=== PATIENT | female | born 1930 | race African-American/Black ===

== ENCOUNTER 2018-03-04 20:17 | Emergency (ER) | payer OTHER ==
--- NOTE | 2018-03-04 22:57 | EDPHYS ---
Physician Documentation [facility] Name: Elle Guy Age: 87 yrs Sex: Female : 1930 Arrival Date: 03/04/2018 Time: 20:20 Bed 18 Private MD: ED Physician Connor Peña HPI: 03/04 21:47 This 87 yrs old Black Female presents to ER via Wheelchair with complaints of Fall snw Injury, Head Injury-Adult. 21:47 Details of fall: The patient fell from an upright position, while standing. Onset: The snw symptoms/episode began/occurred suddenly, yesterday. Associated injuries: The patient sustained injury to the head, felt a little dizzy after fall. Severity of symptoms: At their worst the symptoms were mild. It is unknown whether or not the patient has had similar symptoms in the past. It is unknown whether or not the patient has recently seen a physician. pt states she just lost her balance yesterday. Denies pain. States mild dizziness. Historical: - Allergies: 20:34 NKA; aj - Home Meds: 20:34 amlodipine 10 mg tab 1 tab [Active]; chlorthalidone 25 mg Oral tab 1 tab once daily aj [Active]; glimepiride 2 mg Oral tab 1 tab once daily [Active]; metoprolol tartrate 25 mg Oral tab 1 tab once daily [Active]; Metformin Oral [Active]; Vitamin D Oral [Active]; - PMHx: 20:34 Arthritis; Diabetes - NIDDM; Hypertension; aj - PSHx: 20:34 left hand sx; aj - Immunization history: Last tetanus immunization: unknown. - Social history:: Smoking status: Patient/guardian denies using tobacco. ROS: 21:47 Constitutional: Negative for fever, chills, and weight loss, Eyes: Negative for injury, snw pain, redness, and discharge, ENT: Negative for injury, pain, and discharge, Neck: Negative for injury, pain, and swelling, Cardiovascular: Negative for chest pain, palpitations, and edema, Respiratory: Negative for shortness of breath, cough, wheezing, and pleuritic chest pain, Abdomen/GI: Negative for abdominal pain, nausea, vomiting, diarrhea, and constipation, Back: Negative for injury and pain, : Negative for injury, bleeding, discharge, and swelling, MS/Extremity: Negative for injury and deformity, Skin: Negative for injury, rash, and discoloration. 21:47 Neuro: Positive for dizziness. Exam: 21:47 Constitutional: This is a well developed, well nourished patient who is awake, alert, snw and in no acute distress. Head/Face: Normocephalic, atraumatic. ENT: Nares patent. No nasal discharge, no septal abnormalities noted. Tympanic membranes are normal and external auditory canals are clear. Oropharynx with no redness, swelling, or masses, exudates, or evidence of obstruction, uvula midline. Mucous membranes moist. Neck: Trachea midline, no thyromegaly or masses palpated, and no cervical lymphadenopathy. Supple, full range of motion without nuchal rigidity, or vertebral point tenderness. No Meningismus. Chest/axilla: Normal chest wall appearance and motion. Nontender with no deformity. No lesions are appreciated. Cardiovascular: Regular rate and rhythm with a normal S1 and S2. No gallops, murmurs, or rubs. Normal PMI, no JVD. No pulse deficits. Respiratory: Lungs have equal breath sounds bilaterally, clear to auscultation and percussion. No rales, rhonchi or wheezes noted. No increased work of breathing, no retractions or nasal flaring. Abdomen/GI: Soft, non-tender, with normal bowel sounds. No distension or tympany. No guarding or rebound. No evidence of tenderness throughout. Back: No spinal tenderness. No costovertebral tenderness. Full range of motion. Skin: Warm, dry with normal turgor. Normal color with no rashes, no lesions, and no evidence of cellulitis. MS/ Extremity: Pulses equal, no cyanosis. Neurovascular intact. Full, normal range of motion. Neuro: Awake and alert, GCS 15, oriented to person, place, time, and situation. Cranial nerves II-XII grossly intact. Motor strength 5/5 in all extremities. Sensory grossly intact. Cerebellar exam normal. Normal gait. 21:47 Eyes: Periorbital structures: appear normal, Pupils: no acute changes, Conjunctiva: no acute changes, hx of glaucoma. Vital Signs: 20:30 BP 136 / 64; Pulse 72; Resp 18; Temp 97.6; Pulse Ox 96% on R/A; Weight 67.13 kg; Height aj 4 ft. 11 in. (149.86 cm); Pain 0/10; 21:48 BP 128 / 68; Pulse 67; Resp 17 S; Pulse Ox 98% on R/A; jd3 23:30 BP 150 / 83; Pulse 64; Resp 18 S; Pulse Ox 98% on R/A; Pain 0/10; jd3 20:30 Body Mass Index 29.89 (67.13 kg, 149.86 cm) aj Marianne Coma Score: 20:30 Eye Response: spontaneous(4). Verbal Response: oriented(5). Motor Response: obeys aj commands(6). Total: 15. Trauma Score (Adult): 20:30 Eye Response: spontaneous(1); Verbal Response: oriented(1); Motor Response: obeys aj commands(2); Systolic BP: > 89 mm Hg(4); Respiratory Rate: 10 to 29 per min(4); Marianne Score: 15; Trauma Score: 12 MDM: 21:38 Patient medically screened. snw 22:58 Data reviewed: vital signs, nurses notes. Data interpreted: Pulse oximetry: on room air snw is 98 %. Interpretation: normal. Counseling: I had a detailed discussion with the patient and/or guardian regarding: the historical points, exam findings, and any diagnostic results supporting the discharge/admit diagnosis, radiology results, to return to the emergency department if symptoms worsen or persist or if there are any questions or concerns that arise at home. Special discussion: Based on the patient's history, exam and DX evaluation, there is no indication for emergent intervention or inpatient TX. It is understood by the patient/guardian that if the SXs persist or worsen they need to return immediately for re-evaluation. Based on the history and exam findings, there is no indication for further emergent testing or inpatient evaluation. I discussed with the patient/guardian the need to see the primary care provider for further evaluation of the symptoms. 03/04 21:38 Order name: CT Head C Spine snw Administered Medications: No medications were administered Disposition: 03/05 08:19 Co-signature as Attending Physician, Connor Peña MD I agree with the assessment and rehan plan of care. Disposition: 03/04/18 22:57 Discharged to Home. Impression: Fall on same level, unspecified, Superficial injury of head. - Condition is Stable. - Discharge Instructions: Glaucoma, Head Injury, Adult. - Medication Reconciliation Form, Thank You Letter, Antibiotic Education, Prescription Opioid Use form. - Follow up: Private Physician; When: 1 - 2 days; Reason: Recheck today's complaints, Continuance of care, Re-evaluation by your physician. Follow up: Emergency Department; When: As needed; Reason: Worsening of condition. Signatures: Dispatcher [employer] EDMaria M Tesfaye, RN RN Connor Hilario MD MD cha Therrien, Shelly, MANUFACTURING ENGINEERING DIRECTOR-C MANUFACTURING ENGINEERING DIRECTOR-Csnw Wai Durand, RN RN jd3 Corrections: (The following items were deleted from the chart) 03/04 23:35 22:57 03/04/2018 22:57 Discharged to Home. Impression: Fall on same level, unspecified; jd3 Superficial injury of head. Condition is Stable. Forms are Medication Reconciliation Form, Thank You Letter, Antibiotic Education, Prescription Opioid Use. Follow up: Private Physician; When: 1 - 2 days; Reason: Recheck today's complaints, Continuance of care, Re-evaluation by your physician. Follow up: Emergency Department; When: As needed; Reason: Worsening of condition. snw
--- NOTE | 2018-03-04 22:57 | ER ---
Nurse's Notes [facility] Name: Elle Guy Age: 87 yrs Sex: Female : 1930 Arrival Date: 03/04/2018 Time: 20:20 Bed 18 Private MD: Diagnosis: Fall on same level, unspecified;Superficial injury of head Presentation: 03/04 20:30 Presenting complaint: Patient states: Reports falling yesterday and hitting back of head. Reports having tingling sensation in one leg before falling. Reports tingling has subsided. Reports feeling dizzy today. Care prior to arrival: None. Mechanism of Injury: Fall from standing position. Trauma event details: Injury occurred in the [place], Injury occurred: at home. Injury occurred: March 03, 2018. 20:30 Method Of Arrival: Wheelchair 20:30 Acuity: DAVID 3 20:33 Transition of care: patient was not received from another setting of care. Onset of symptoms was March 04, 2018. Initial Sepsis Screen: Does the patient meet any 2 criteria? No. Patient's initial sepsis screen is negative. Does the patient have a suspected source of infection? No. Patient's initial sepsis screen is negative. Trauma Activation: Not Applicable Physician: ED Physician; Name: ; Notified At: ; Arrived At: Physician: General Surgeon; Name: ; Notified At: ; Arrived At: Physician: Radiology; Name: ; Notified At: ; Arrived At: Physician: Respiratory; Name: ; Notified At: ; Arrived At: Physician: Lab; Name: ; Notified At: ; Arrived At: Historical: - Allergies: 20:34 NKA; aj - Home Meds: 20:34 amlodipine 10 mg tab 1 tab [Active]; chlorthalidone 25 mg Oral tab 1 tab once daily aj [Active]; glimepiride 2 mg Oral tab 1 tab once daily [Active]; metoprolol tartrate 25 mg Oral tab 1 tab once daily [Active]; Metformin Oral [Active]; Vitamin D Oral [Active]; - PMHx: 20:34 Arthritis; Diabetes - NIDDM; Hypertension; aj - PSHx: 20:34 left hand sx; aj - Immunization history: Last tetanus immunization: unknown. - Social history:: Smoking status: Patient/guardian denies using tobacco. Screenin:32 Abuse screen: Denies threats or abuse. Nutritional screening: No deficits noted. jd3 Tuberculosis screening: No symptoms or risk factors identified. Fall Risk Fall in past 12 months (25 points). Ambulatory Aid- Crutches/Cane/Walker (15 pts). Gait- Weak (10 pts.). Total Tucker Fall Scale indicates High Risk Score (45 or more points). Fall prevention measures have been instituted. Side Rails Up X 2 Placed Close to Nursing Station Frequent Obs/Assessments Occuring Family Present and informed to notify staff if the need to leave the bedside. Primary Survey: 20:30 A: Airway: patent. Breathing/Chest: Respiratory pattern: regular, Respiratory effort: aj spontaneous, unlabored. Circulation: Skin color:. Disability Alert. 23:32 Reassessment Breathing/Chest Respiratory pattern Regular Respiratory effort Spontaneous jd3 Breath sounds Clear Chest inspection Symmetrical. Assessment: 20:30 General: Appears in no apparent distress. comfortable, Behavior is calm, cooperative, aj appropriate for age. Pain: Denies pain. Neuro: Level of Consciousness is awake, alert, obeys commands, Oriented to person, place, time, situation, Appropriate for age Reports dizziness. Respiratory: Airway is patent Respiratory effort is even, unlabored, Respiratory pattern is regular, symmetrical. Derm: Skin is intact, is healthy with good turgor, Skin is pink, warm \T\ dry. normal. 21:41 Reassessment: Patient appears in no apparent distress at this time. No changes from jd3 previously documented assessment. Patient and/or family updated on plan of care and expected duration. Pain level reassessed. Patient is alert, oriented x 3, equal unlabored respirations, skin warm/dry/pink. pt resting with eyes closed, even and unlabored respirations, call hernadez in reach, no distress noted at this time. 23:30 Reassessment: Patient appears in no apparent distress at this time. Patient and/or d3 family updated on plan of care and expected duration. Pain level reassessed. Patient is alert, oriented x 3, equal unlabored respirations, skin warm/dry/pink. pt reported understanding of discharge instructions, pt assisted to front of ER with wheelchair. Vital Signs: 20:30 BP 136 / 64; Pulse 72; Resp 18; Temp 97.6; Pulse Ox 96% on R/A; Weight 67.13 kg; Height aj 4 ft. 11 in. (149.86 cm); Pain 0/10; 21:48 BP 128 / 68; Pulse 67; Resp 17 S; Pulse Ox 98% on R/A; jd3 23:30 BP 150 / 83; Pulse 64; Resp 18 S; Pulse Ox 98% on R/A; Pain 0/10; jd3 20:30 Body Mass Index 29.89 (67.13 kg, 149.86 cm) aj Marianne Coma Score: 20:30 Eye Response: spontaneous(4). Verbal Response: oriented(5). Motor Response: obeys aj commands(6). Total: 15. Trauma Score (Adult): 20:30 Eye Response: spontaneous(1); Verbal Response: oriented(1); Motor Response: obeys aj commands(2); Systolic BP: > 89 mm Hg(4); Respiratory Rate: 10 to 29 per min(4); Marianne Score: 15; Trauma Score: 12 ED Course: 20:20 Patient arrived in ED. am2 20:31 Triage completed. aj 20:34 Arm band placed on right wrist. Patient placed in an exam room. aj 21:38 Sybil Frye FNP-C is PHCP. snw 21:38 Connor Peña MD is Attending Physician. snw 21:40 Wai Durand, DEANNE is Primary Nurse. jd3 21:[address] via stretcher. em2 22:06 CT completed. Patient tolerated procedure well. Patient moved back from CT. em2 22:08 CT Head C Spine In Process Unspecified. EDMS 23:31 Patient has correct armband on for positive identification. Bed in low position. Call jd3 light in reach. Side rails up X2. Adult w/ patient. 23:32 Patient maintains SpO2 saturation greater than 95% on room air. jd3 23:34 No provider procedures requiring assistance completed. Patient did not have IV access jd3 during this emergency room visit. 23:34 Thermoregulation: warm blanket given to patient. jd3 Administered Medications: No medications were administered Intake: 23:34 PO: 0ml; Total: 0ml. jd3 Output: 23:34 Urine: 0ml; Total: 0ml. jd3 Outcome: 22:57 Discharge ordered by . snw 23:33 Discharged to home via wheelchair, with family. jd3 23:33 Condition: stable 23:33 Discharge instructions given to patient, family, Instructed on discharge instructions, follow up and referral plans. Demonstrated understanding of instructions, follow-up care. 23:33 Patient's length of stay in the Emergency Department was greater than 2 hours. waiting for diagnostic test resultsPatient's length of stay extended due to 23:35 Patient left the ED. jd3 Signatures: Dispatcher [employer] Maria M Treadwell, RN RN Sybil Kulkarni, SENIOR MATERIALS ANALYST-C SENIOR MATERIALS ANALYST-Merlinew Chadwick Harmon 2 Maria M Epstein am2 Wai Durand RN RN jd3
[2018-03-04 23:46] VITALS: TEMP 97.6
[2018-03-04 23:47] VITALS: O2SAT 98
[2018-03-04 23:48] VITALS: BP 150/83
--- NOTE | 2018-03-05 08:30 | RAD REPORT ---
EXAM DESCRIPTION: CT - [id number] - 03/05/2018 7:26 am CLINICAL HISTORY: Trauma, head and neck injury. COMPARISON: 05/28/2017 TECHNIQUE: Axial 5 mm thick images of the head were obtained. Axial 2 mm thick images of the cervical spine were obtained with sagittal and coronal reconstruction images generated and reviewed. All CT scans are performed using dose optimization technique as appropriate and may include automated exposure control or mA/KV adjustment according to patient size. FINDINGS: CT HEAD WITHOUT CONTRAST: No acute hemorrhage, hydrocephalus or extra-axial collection is identified.Mild generalized brain atr ophy is present with mild periventricular and deep white matter chronic microvascular ischemic change s.No areas of brain edema or midline shift. The paranasal sinuses and mastoids are clear.The calvarium is intact. CT CERVICAL SPINE WITHOUT CONTRAST: No fracture or subluxation.Large posterior spurs are present that C4-5 resulting canal narrowing appe arNo prevertebral soft tissues swelling is identified. Calcified right thyroid lobe nodule seen. IMPRESSION: No acute intracranial or cervical spine findings. Spinal canal stenosis at C4-5 suspected due to large posterior osteophytes.
--- NOTE | 2018-03-05 10:04 | EKG ---
Test Date: 2018-03-04 Test Time: 20:46:05 Academic Affairs Manager: LEO MEASUREMENT RESULTS: Intervals: Rate: 68 [place]: 252 QRSD: 146 QT: 444 QTc: 472 [place]: P: 26 [place]: 252 QRS: -2 T: 226 INTERPRETIVE STATEMENTS: Sinus rhythm with 1st degree AV block Left bundle branch block Abnormal ECG Compared to ECG 05/27/2017 23:15:30 No significant changes Electronically Signed On 03-05-18 10:02:58 CDT by Néstor Harmon
== END 2018-03-04 23:35 | disposition home or self-care (01) ==
LOC: ER 20:17
DX: S00.90XA Unspecified superficial injury of unspecified part of head, initial encounter (principal); W18.30XA Fall on same level, unspecified, initial encounter; Y93.89 Activity, other specified; Y92.9 Unspecified place or not applicable; I10 Essential (primary) hypertension; E11.9 Type 2 diabetes mellitus without complications
CPT/HCPCS: 70450; 72125; 93005; 99284

== ENCOUNTER 2018-04-10 10:10 | Observation (INO) | payer OTHER ==
[2018-04-10 11:15] LABS: Protime INR 1.08
[2018-04-10 11:16] LABS: Absolute Lymphocytes (CBC) 1.7 K/uL (0.7-4.9); Absolute Monocytes 0.4 K/uL (0.1-1.3); Absolute Neutrophil 4.2 K/uL (1.8-8.0); Basophils % 0.7 % (0-1.3); Eosinophils % 4.6 % (0-4.4); Hematocrit 35.5 % (36.0-45.0); Lymphocytes % 25.5 % (15.3-44.8); MCH 28.6 pg (27.0-35.0); MCV 91.4 fL (80-100); MPV 8.7 fL (7.6-11.3); Monocytes % 5.8 % (3.3-12.3); RBC Red Blood Cell Count 3.89 M/uL (3.86-4.86)
--- NOTE | 2018-04-10 11:40 | RAD REPORT ---
EXAM DESCRIPTION: RAD - Chest Single View - 04/10/2018 11:15 am CLINICAL HISTORY: Chest pain. COMPARISON: 05/27/2017 FINDINGS: Portable technique limits examination quality. The lungs are grossly clear. The heart is normal in size. No displaced fractures.Dual lead pacer mariana ce is present. IMPRESSION: No acute intrathoracic process suspected.
[2018-04-10 11:44] LABS: Potassium 4.3 mEq/L (3.6-5.0)
[2018-04-10 11:50] LABS: Albumin 3.8 g/dL (3.2-5.5); Bilirubin Direct 0.1 mg/dL (0-0.2); Bilirubin Total 0.4 mg/dL (0.3-1.2); Magnesium 1.9 mg/dL (1.8-2.5); Protein, Total 7.1 g/dL (6.0-8.3)
[2018-04-10 12:14] LABS: Urine Blood 2+ (NEG); Urine Glucose NEGATIVE (NEG); Urine Protein 1+ (NEG); Urine Specific Gravity 1.015 (1.005-1.030); Urine pH 5.5 (5.0-7.0)
--- NOTE | 2018-04-10 12:35 | RAD REPORT ---
EXAM DESCRIPTION: CT - Head Brain Wo Cont - 04/10/2018 12:25 pm CLINICAL HISTORY: Fall, head injury. COMPARISON: 03/04/2018, 05/28/2017 TECHNIQUE: All CT scans are performed using dose optimization technique as appropriate and may inclu de automated exposure control or mA/KV adjustment according to patient size. FINDINGS: No intracranial hemorrhage, hydrocephalus or extra-axial fluid collection.Advance generali zed brain atrophy is present with advanced periventricular and deep white matter chronic microvascula r ischemic changes.No areas of brain edema or evidence of midline shift. The paranasal sinuses and mastoids are clear. The calvarium is intact. Left posterior scalp hematoma. IMPRESSION: No acute intracranial abnormality.
--- NOTE | 2018-04-10 13:36 | ER ---
Nurse's Notes [facility] Name: Elle Guy Age: 87 yrs Sex: Female : 1930 Arrival Date: 04/10/2018 Time: 10:14 Bed 14 Private MD: Yosvany Preciado K Diagnosis: Abnormal electrocardiogram [ECG] [EKG];Dizziness and giddiness;Near Syncope Presentation: 04/10 10:21 Presenting complaint: Patient states: " I got dizzy and fell about an hour ago." Denies ph LOC, reports pain in back of head and L ear. Transition of care: patient was not received from another setting of care. Onset of symptoms was April 10, 2018. Risk Assessment: Do you want to hurt yourself or someone else? Patient reports no desire to harm self or others. Initial Sepsis Screen: Does the patient meet any 2 criteria? No. Patient's initial sepsis screen is negative. Does the patient have a suspected source of infection? No. Patient's initial sepsis screen is negative. Care prior to arrival: None. 10:21 Method Of Arrival: Wheelchair ph 10:21 Acuity: DAVID 3 ph Historical: - Allergies: 10:23 NKA; ph - Home Meds: 10:23 amlodipine 10 mg tab 1 tab [Active]; chlorthalidone 25 mg Oral tab 1 tab once daily ph [Active]; glimepiride 2 mg Oral tab 1 tab once daily [Active]; Metformin Oral [Active]; metoprolol tartrate 25 mg Oral tab 1 tab once daily [Active]; Vitamin D Oral [Active]; - PMHx: 10:23 Arthritis; Diabetes - NIDDM; Hypertension; ph - PSHx: 10:23 left hand sx; ph - Immunization history:: Adult Immunizations unknown. - Social history:: Smoking status: Patient/guardian denies using tobacco. - Ebola Screening: : No symptoms or risks identified at this time. Screenin:26 Abuse screen: Denies threats or abuse. Denies injuries from another. Nutritional aj screening: No deficits noted. Tuberculosis screening: No symptoms or risk factors identified. Fall Risk None identified. Primary Survey: 10:27 Breathing/Chest: Respiratory pattern: regular, Respiratory effort: spontaneous, aj unlabored. Circulation: Skin color: pink. Disability Alert. Assessment: 10:26 General: Appears in no apparent distress. comfortable, Behavior is calm, cooperative, aj appropriate for age. Pain: Complains of pain in scalp. Neuro: Level of Consciousness is awake, alert, obeys commands, Oriented to person, place, time, situation, Appropriate for age. Neuro: Reports dizziness. Respiratory: Airway is patent Respiratory effort is even, unlabored, Respiratory pattern is regular, symmetrical. Derm: Skin is intact, is healthy with good turgor, Skin is pink, warm \\T\\ dry. normal. Vital Signs: 10:24 BP 198 / 79; Pulse 73; Resp 16; Temp 98.5; Pulse Ox 97% on R/A; Weight 68.04 kg; ph 11:17 BP 170 / 70; Pulse 59; Resp 16; Pulse Ox 96% on R/A; aj 11:45 BP 182 / 72; Pulse 60; Resp 16; Pulse Ox 98% on R/A; dh3 12:45 BP 161 / 73; Pulse 60; Resp 19; Pulse Ox 97% on R/A; dh3 13:30 BP 180 / 79; Pulse 60; Resp 16; Pulse Ox 97% on R/A; dh3 16:04 BP 165 / 72; Pulse 62; Resp 16; Temp 98.5; Pulse Ox 97% on R/A; aj [place] Coma Score: 10:27 Eye Response: spontaneous(4). Verbal Response: oriented(5). Motor Response: obeys aj commands(6). Total: 15. Trauma Score (Adult): 10:27 Eye Response: spontaneous(1); Verbal Response: oriented(1); Motor Response: obeys aj commands(2); Systolic BP: > 89 mm Hg(4); Respiratory Rate: 10 to 29 per min(4); Marianne Score: 15; Trauma Score: 12 ED Course: 10:14 Patient arrived in ED. ph 10:14 Maria M Pal, DEANNE is Primary Nurse. aj 10:15 Yosvany Preciado MD is Private Physician. mr 10:16 Beto Cesar PA is PHCP. jr8 10:16 Darryn Wen MD is Attending Physician. jr8 10:23 Triage completed. ph 10:24 Arm band placed on. ph 10:26 Patient has correct armband on for positive identification. aj 11:12 X-ray completed. Portable x-ray completed in exam room. jr1 11:15 XRAY Chest (1 view) In Process Unspecified. EDMS 11:45 Urine collected: hat, clear. dh3 12:00 Inserted saline lock: 20 gauge in right antecubital area, using aseptic technique. aj 12:[address] aj 12:24 CT completed. Patient tolerated procedure well. Patient moved to CT via stretcher. mw3 Patient moved back from CT. 12:25 CT Head Brain wo Cont In Process Unspecified. EDMS 13:35 Giancarlo Elias MD is Hospitalizing Provider. jr8 16:04 No provider procedures requiring assistance completed. aj Administered Medications: No medications were administered Point of Care Testing: Blood Glucose: 10:23 Blood Glucose: 121 mg/dL; aj Ranges: Outcome: 13:36 Decision to Hospitalize by Provider. jr8 16:20 Patient left the ED. aj Signatures: Dispatcher [employer] EDMS Maria M Pal, DEANNE RN Sindy Jimenez mr [place] jr1 Beto Cesar PA PA jr8 Kaykay Noonan, RN RN Chantelle Bright 3 Ava Ga 3 Corrections: (The following items were deleted from the chart) 14:16 14:15 BP 180 / 79; Pulse 60bpm; Resp 16bpm; Pulse Ox 97% RA; 3 3
--- NOTE | 2018-04-10 13:37 | EDPHYS ---
Physician Documentation [facility] Name: Elle Guy Age: 87 yrs Sex: Female : 1930 Arrival Date: 04/10/2018 Time: 10:14 Bed 14 Private MD: Yosvany Preciado K ED Physician Darryn Wen HPI: 04/10 11:17 This 87 yrs old Black Female presents to ER via Wheelchair with complaints of Fall jr8 Injury. 11:17 Details of fall: The patient fell from an upright position, while standing. Onset: The jr8 symptoms/episode began/occurred acutely, today. Associated injuries: The patient sustained injury to the head. Severity of symptoms: At their worst the symptoms were moderate, in the emergency department the symptoms are unchanged. The patient has experienced a previous episode. The patient has not recently seen a physician. Patient stated that she started to feel dizzy and lightheaded. Fell backwards hitting head. Denies LOC. Currently at baseline and feels better. Historical: - Allergies: 10:23 NKA; ph - Home Meds: 10:23 amlodipine 10 mg tab 1 tab [Active]; chlorthalidone 25 mg Oral tab 1 tab once daily ph [Active]; glimepiride 2 mg Oral tab 1 tab once daily [Active]; Metformin Oral [Active]; metoprolol tartrate 25 mg Oral tab 1 tab once daily [Active]; Vitamin D Oral [Active]; - PMHx: 10:23 Arthritis; Diabetes - NIDDM; Hypertension; ph - PSHx: 10:23 left hand sx; ph - Immunization history:: Adult Immunizations unknown. - Social history:: Smoking status: Patient/guardian denies using tobacco. - Ebola Screening: : No symptoms or risks identified at this time. ROS: 11:17 Eyes: Negative for injury, pain, redness, and discharge, ENT: Negative for injury, jr8 pain, and discharge, Neck: Negative for injury, pain, and swelling, Cardiovascular: Negative for chest pain, palpitations, and edema, Respiratory: Negative for shortness of breath, cough, wheezing, and pleuritic chest pain, Abdomen/GI: Negative for abdominal pain, nausea, vomiting, diarrhea, and constipation, Back: Negative for injury and pain, MS/Extremity: Negative for injury and deformity, Skin: Negative for injury, rash, and discoloration. 11:17 Neuro: Positive for dizziness, near syncope, Negative for altered mental status, loss of consciousness, numbness, seizure activity, speech changes, tingling, tremor, visual changes, weakness. Exam: 11:17 Eyes: Pupils equal round and reactive to light, extra-ocular motions intact. Lids and jr8 lashes normal. Conjunctiva and sclera are non-icteric and not injected. Cornea within normal limits. Periorbital areas with no swelling, redness, or edema. ENT: Nares patent. No nasal discharge, no septal abnormalities noted. Tympanic membranes are normal and external auditory canals are clear. Oropharynx with no redness, swelling, or masses, exudates, or evidence of obstruction, uvula midline. Mucous membranes moist. Neck: Trachea midline, no thyromegaly or masses palpated, and no cervical lymphadenopathy. Supple, full range of motion without nuchal rigidity, or vertebral point tenderness. No Meningismus. Cardiovascular: Regular rate and rhythm with a normal S1 and S2. No gallops, murmurs, or rubs. Normal PMI, no JVD. No pulse deficits. Respiratory: Lungs have equal breath sounds bilaterally, clear to auscultation and percussion. No rales, rhonchi or wheezes noted. No increased work of breathing, no retractions or nasal flaring. Abdomen/GI: Soft, non-tender, with normal bowel sounds. No distension or tympany. No guarding or rebound. No evidence of tenderness throughout. Back: No spinal tenderness. No costovertebral tenderness. Full range of motion. Skin: Warm, dry with normal turgor. Normal color with no rashes, no lesions, and no evidence of cellulitis. MS/ Extremity: Pulses equal, no cyanosis. Neurovascular intact. Full, normal range of motion. Neuro: Awake and alert, GCS 15, oriented to person, place, time, and situation. Cranial nerves II-XII grossly intact. Motor strength 5/5 in all extremities. Sensory grossly intact. Cerebellar exam normal. Normal gait. 11:17 Head/face: Noted is hematoma, that is mild, of the left occipital area. Vital Signs: 10:24 BP 198 / 79; Pulse 73; Resp 16; Temp 98.5; Pulse Ox 97% on R/A; Weight 68.04 kg; ph 11:17 BP 170 / 70; Pulse 59; Resp 16; Pulse Ox 96% on R/A; aj 11:45 BP 182 / 72; Pulse 60; Resp 16; Pulse Ox 98% on R/A; dh3 12:45 BP 161 / 73; Pulse 60; Resp 19; Pulse Ox 97% on R/A; dh3 13:30 BP 180 / 79; Pulse 60; Resp 16; Pulse Ox 97% on R/A; dh3 16:04 BP 165 / 72; Pulse 62; Resp 16; Temp 98.5; Pulse Ox 97% on R/A; aj Marianne Coma Score: 10:27 Eye Response: spontaneous(4). Verbal Response: oriented(5). Motor Response: obeys aj commands(6). Total: 15. Trauma Score (Adult): 10:27 Eye Response: spontaneous(1); Verbal Response: oriented(1); Motor Response: obeys aj commands(2); Systolic BP: > 89 mm Hg(4); Respiratory Rate: 10 to 29 per min(4); Marianne Score: 15; Trauma Score: 12 MDM: 10:16 Patient medically screened. [facility] 13:34 Data reviewed: vital signs, nurses notes, lab test result(s), EKG, radiologic studies, [facility] CT scan, plain films, and as a result, I will discharge patient. Data interpreted: Pulse oximetry: on room air is 97 %. Interpretation: normal. Counseling: I had a detailed discussion with the patient and/or guardian regarding: the historical points, exam findings, and any diagnostic results supporting the discharge/admit diagnosis, lab results, radiology results, the need for further work-up and treatment in the hospital. Physician consultation: Giancarlo Elias MD was called at 13:34, was contacted at 13:34, regarding admission, to the telemetry unit. patient's condition, and will see patient. ED course: Discussed with Dr. Elias. Patient still feeling dizzy. Had near syncopal episode earlier today. EKG changes present. Agrees observation needed . 04/10 10:46 Order name: Basic Metabolic Panel; Complete Time: 12:23 [facility] 04/10 10:46 Order name: BNP; Complete Time: 12:23 [facility] 04/10 10:46 Order name: CBC with Diff; Complete Time: 11:21 04/10 10:46 Order name: LFT's; Complete Time: 12:23 04/10 10:46 Order name: Magnesium; Complete Time: 12:23 04/10 10:46 Order name: PT-INR; Complete Time: 11:21 04/10 10:46 Order name: Troponin (emerg Dept Use Only); Complete Time: 12:23 04/10 10:46 Order name: XRAY Chest (1 view); Complete Time: 12:23 04/10 10:46 Order name: EKG; Complete Time: 10:46 04/10 10:46 Order name: Cardiac monitoring; Complete Time: 11:16 04/10 10:46 Order name: EKG - Nurse/Tech; Complete Time: 11:04/10 11:42 Order name: Urine Dipstick--Ancillary (enter results); Complete Time: 12:23 04/10 12:06 Order name: CT Head Brain wo Cont; Complete Time: 12:41 04/10 13:55 Order name: Diet Regular; Complete Time: 13:55 04/10 10:46 Order name: IV Saline Lock; Complete Time: 11:04/10 10:46 Order name: Labs collected and sent; Complete Time: :04/10 10:46 Order name: O2 Per Protocol; Complete Time: :04/10 10:46 Order name: O2 Sat Monitoring; Complete Time: 11:04/10 10:46 Order name: Urine Dipstick-Ancillary (obtain specimen); Complete Time: 11:46 Administered Medications: No medications were administered Point of Care Testing: Blood Glucose: 10:23 Blood Glucose: 121 mg/dL; Ranges: Critical Glucose Levels:Adult <50 mg/dl or >400 mg/dl <40 mg/dl or >180 mg/dl Disposition: 18:44 Co-signature as Attending Physician, Darryn Wen MD I agree with the assessment and kdr plan of care. Disposition: 04/10/18 13:36 Hospitalization ordered by Giancarlo Elias for Observation. Preliminary diagnosis are Abnormal electrocardiogram [ECG] [EKG], Dizziness and giddiness, Near Syncope. - Bed requested for Telemetry/MedSurg (observation). - Status is Observation. aj - Condition is Stable. - Problem is new. - Symptoms have improved. UTI on Admission? No Signatures: Dispatcher [employer] EDMS Iona Medellin Maria M Cruz RN RN aj Rittger, Kevin, MD MD kdr Roszak, Josh, PA PA jr8 Kaykay Noonan RN RN ph Corrections: (The following items were deleted from the chart) 12:41 11:17 Head/face: Noted is hematoma, that is mild, of the right occipital area, jr8 jr8 15:31 13:36 Hospitalization Ordered by Giancarlo Elias MD for Observation. Preliminary diagnosis bd is Abnormal electrocardiogram [ECG] [EKG]; Dizziness and giddiness; Near Syncope. Bed requested for Telemetry/MedSurg (observation). Status is Observation. Condition is Stable. Problem is new. Symptoms have improved. UTI on Admission? No. jr8 16:20 15:31 04/10/2018 13:36 Hospitalization Ordered by Giancarlo Elias MD for Observation. aj Preliminary diagnosis is Abnormal electrocardiogram [ECG] [EKG]; Dizziness and giddiness; Near Syncope. Bed requested for Telemetry/MedSurg (observation). Status is Observation. Condition is Stable. Problem is new. Symptoms have improved. UTI on Admission? No. bd
[2018-04-10] MEDS: D5 0.45 NS 1,000 ML IV SCH ×2 (14:00→16:58)
[2018-04-10 17:32] VITALS: BMI 29.2
--- NOTE | 2018-04-10 17:34 | P.HP ---
Certification for Inpatient Patient admitted to: Observation With expected LOS: <2 Midnights Patient will require the following post-hospital care: None Practitioner: I am a practitioner with admitting privileges, knowledge of patient current condition, hospital course, and medical plan of care. Services: Services provided to patient in accordance with Admission requirements found in Title 42 Section 412.3 of the Code of Federal Regulations Patient History Date of Service: 04/10/18 Reason for admission: presyncope History of Present Illness: This is a 87 y/o female with HTN DM and CKD, s/p pace maker placement who presented to ER after presyncope. SHe was in her kitchen today and felt zinny, almost passed out, and called her . She was brought in ER. In ER, her Bp was close to 200. She is doing fair now, but she did not remeber her medications, she said she might miss her medications. She has no headache. She has no blurred vision. She has no weakness. Allergies iodine Allergy (Severe, Verified 04/10/18 17:08) Anaphylaxis Home Medications: Aspirin [Aspirin EC 81 MG] 81 mg PO DAILY #90 tablet. 05/28/17 Atorvastatin Calcium [Lipitor*] 10 mg PO BEDTIME #30 tab 05/28/17 Travoprost [Travatan Z] 2.5 ml EACH EYE DAILY 05/28/17 Allopurinol 300 mg PO DAILY 04/10/18 Colchicine/Probenecid [Probenecid-Colchicine Tabs] 1 tab PO DAILY 04/10/18 Glimepiride 2 mg PO DAILY 04/10/18 Metformin HCl [Glucophage*] 500 mg PO DAILY 04/10/18 Metoprolol Succinate [Toprol Xl] 25 mg PO DAILY 04/10/18 - Past Medical/Surgical History Has patient received pneumonia vaccine in the past: No Diabetic: Yes -: Diabetes mellitus type 2 -: Hypertension -: Chronic renal disease -: History of pacemaker -: Glaucoma -: cataracts -: hyperlipidemia -: Left hand surgery -: Pacemaker placement -: bilateral cataract sx Psychosocial/ Personal History: The patient is of 66 years. She has 2 children - Family History Mother -: Diabetes - Social History Smoking Status: Never smoker Alcohol use: No CD- Drugs: No Caffeine use: Yes Place of Residence: Home Review of Systems 10-point ROS is otherwise unremarkable Physical Examination - Vital Signs Temperature: 98.5 F Blood Pressure: 165/72 Pulse: 62 Respirations: 16 - Physical Exam General: Alert, In no apparent distress HEENT: Atraumatic, PERRLA, Mucous membr. moist/pink, EOMI, Sclerae nonicteric Neck: Supple, 2+ carotid pulse no bruit, No LAD, Without JVD or thyroid abnormality Respiratory: Clear to auscultation bilaterally, Normal air movement Cardiovascular: Regular rate/rhythm, Normal S1 S2 Gastrointestinal: Normal bowel sounds, No tenderness Musculoskeletal: No tenderness Integumentary: No rashes Neurological: Normal gait, Normal speech, Normal strength at 5/5 x4 extr, Normal tone, Normal affect Lymphatics: No axilla or inguinal lymphadenopathy - Studies Laboratory Data (last 24 hrs) 04/10/18 10:58: PT 12.7 H, INR 1.08 04/10/18 10:58: WBC 6.6, Hgb 11.1 L, Hct 35.5 L, Plt Count 261 04/10/18 10:58: B-Natriuretic Peptide 161 H 04/10/18 10:58: Sodium 141, Potassium 4.3, BUN 38 H, Creatinine 1.97 H, Glucose 128 H, Magnesium 1.9, Total Bilirubin 0.4, AST 19, ALT 15, Alkaline Phosphatase 82 Assessment and Plan - Problems (Diagnosis) (1) Severe uncontrolled hypertension Current Visit: Yes Status: Acute (2) Dizziness Onset Date: 05/28/17 Current Visit: Yes Status: Acute (3) Chronic renal disease Current Visit: Yes Status: Chronic Qualifiers: Chronic kidney disease stage: stage 3 (moderate) (4) Diabetes mellitus Current Visit: Yes Status: Chronic Qualifiers: Diabetes mellitus type: type 2 Diabetes mellitus complication status: without complication (5) History of pacemaker Current Visit: Yes Status: Chronic (6) Hyperlipidemia Current Visit: Yes Status: Chronic Qualifiers: Hyperlipidemia type: mixed hyperlipidemia (7) Hypertension Current Visit: No Status: Chronic Qualifiers: Hypertension type: essential hypertension (8) History of CVA (cerebrovascular accident) Current Visit: No Status: Suspected - Plan --Resume home meds for HTN, may have to increase dose --Observe overnight - Advance Directives Does patient have a Living Will: Yes Does patient have a Durable POA for Healthcare: No
[2018-04-10] MEDS: AMLODIPINE 10 MG TAB PO SCH (17:50)
[2018-04-10] MEDS: ATORVASTATIN 10 MG TAB PO SCH (20:37)
--- NOTE | 2018-04-11 07:58 | EKG ---
Test Date: 2018-04-10 Test Time: 10:50:45 Composition [employer] Applier: MIKE MEASUREMENT RESULTS: Intervals: Rate: 60 IN: 246 QRSD: 120 QT: 468 QTc: 468 [place]: P: 33 IN: 246 QRS: -60 T: 73 INTERPRETIVE STATEMENTS: Atrial-paced rhythm with prolonged AV conduction Left anterior fascicular block Left ventricular hypertrophy with QRS widening T wave abnormality, consider anterior ischemia Abnormal ECG Compared to ECG 03/04/2018 20:46:05 Left anterior fascicular block now present Left ventricular hypertrophy now present T-wave abnormality now present Possible ischemia now present Sinus rhythm no longer present First degree AV block no longer present Left bundle-branch block no longer present Electronically Signed On 04-11-18 07:55:14 CDT by Néstor Harmon
[2018-04-11] MEDS ORDERED: METFORMIN HCL 500 MG TAB PO SCH (08:00)
[2018-04-11] MEDS: AMLODIPINE 10 MG TAB PO SCH (08:43)
[2018-04-11] MEDS: GLIMEPIRIDE 2 MG TABLET PO SCH (08:44)
[2018-04-11] MEDS: COLCHICINE PO SCH (08:44)
[2018-04-11] MEDS: ASPIRIN EC 81 MG TAB PO SCH (08:44)
[2018-04-11] MEDS: PROBENECID PO SCH (08:44)
[2018-04-11] MEDS: METOPROLOL XL 25 MG TAB PO SCH (08:44)
[2018-04-11] MEDS: ALLOPURINOL 300 MG TAB PO SCH (08:44)
[2018-04-11] MEDS ORDERED: TRAVOPROST 0.004% 2.5ML OPTH EACH EYE SCH (09:00)
[2018-04-11 11:20] VITALS: O2SAT 100
[2018-04-11] MEDS: ATORVASTATIN 10 MG TAB PO SCH (20:12)
[2018-04-12] MEDS: AMLODIPINE 10 MG TAB PO SCH (08:55)
[2018-04-12] MEDS: PROBENECID PO SCH (08:55)
[2018-04-12] MEDS: GLIMEPIRIDE 2 MG TABLET PO SCH (08:55)
[2018-04-12] MEDS: ASPIRIN EC 81 MG TAB PO SCH (08:55)
[2018-04-12] MEDS: ALLOPURINOL 300 MG TAB PO SCH (08:55)
[2018-04-12] MEDS: METOPROLOL XL 25 MG TAB PO SCH (08:55)
[2018-04-12] MEDS: COLCHICINE PO SCH (08:55)
--- NOTE | 2018-04-12 10:06 | P.PN ---
Subjective Date of Service: 04/11/18 Subjective: No new changes, No C/O voiced Review of Systems 10-point ROS is otherwise unremarkable Physical Examination - Vital Signs Temperature: 97.7 F Blood Pressure: 150/84 Pulse: 60 Respirations: 18 Pulse Ox (%): 99 - Physical Exam General: Alert, In no apparent distress, Oriented x3 Respiratory: Clear to auscultation bilaterally, Normal air movement Cardiovascular: Regular rate/rhythm, Normal S1 S2, No murmurs Gastrointestinal: Normal bowel sounds, Soft and benign, Non-distended, No tenderness Musculoskeletal: No clubbing, No swelling, No contractures Neurological: Normal speech, Normal tone, Sensation intact, Cranial nerves 3-12 intact, Normal affect Lymphatics: No axilla or inguinal lymphadenopathy - Studies Medications List Reviewed: Yes Assessment & Plan - Problems (Diagnosis) (1) Dizziness Onset Date: 05/28/17 Current Visit: Yes Status: Acute (2) Chronic renal disease Current Visit: Yes Status: Chronic Qualifiers: Chronic kidney disease stage: stage 3 (moderate) (3) Diabetes mellitus Current Visit: Yes Status: Chronic Qualifiers: Diabetes mellitus type: type 2 Diabetes mellitus complication status: without complication (4) History of pacemaker Current Visit: Yes Status: Chronic (5) Hyperlipidemia Current Visit: Yes Status: Chronic Qualifiers: Hyperlipidemia type: mixed hyperlipidemia (6) Hypoglycemia Onset Date: 05/28/17 Current Visit: No Status: Acute (7) History of CVA (cerebrovascular accident) Current Visit: No Status: Suspected - Plan PLAN: 1. STRICT BLOOD PRESSURE CONTROL 2. MONITOR RENAL FUNCTION AND ELECTROLYTES 3. ORTHOSTATICS VITAL SIGNS 4. OUT OF BED AND AMBULATE 5. POSSIBLE DISCHARGE HOME IN THE MORNING. Discharge Plan: Home Plan to discharge in: 24 Hours - Advance Directives Does patient have a Living Will: Yes Does patient have a Durable POA for Healthcare: No
[2018-04-12 11:47] LABS: Absolute Lymphocytes (CBC) 2.1 K/uL (0.7-4.9); Absolute Monocytes 0.5 K/uL (0.1-1.3); Absolute Neutrophil 5.6 K/uL (1.8-8.0); Basophils % 1.3 % (0-1.3); Eosinophils % 5.1 % (0-4.4); Hematocrit 37.5 % (36.0-45.0); MCH 28.7 pg (27.0-35.0); MCV 90.8 fL (80-100); MPV 8.6 fL (7.6-11.3); Monocytes % 5.8 % (3.3-12.3); RBC Red Blood Cell Count 4.13 M/uL (3.86-4.86)
[2018-04-12 12:08] LABS: Phosphorus 3.4 mg/dL (2.5-4.3); Potassium 4.5 mEq/L (3.6-5.0)
[2018-04-12 12:30] LABS: A1c Component 0.7 mg/dL; Hemoglobin A1c 7.4 % (4-6.0)
[2018-04-12 16:08] VITALS: BP 127/60; TEMP 97.2
--- NOTE | 2018-05-11 05:35 | P.DS ---
Discharge Date: 04/12/18 Disposition: ROUTINE DISCHARGE Discharge Condition: GOOD Reason for Admission: presyncope - Problems (1) Dizziness Onset Date: 05/28/17 Status: Acute (2) Chronic renal disease Status: Chronic Qualifiers: Chronic kidney disease stage: stage 3 (moderate) (3) Diabetes mellitus Status: Chronic Qualifiers: Diabetes mellitus type: type 2 Diabetes mellitus complication status: without complication (4) History of pacemaker Status: Chronic (5) Hyperlipidemia Status: Chronic Qualifiers: Hyperlipidemia type: mixed hyperlipidemia (6) Hypoglycemia Onset Date: 05/28/17 Status: Acute (7) History of CVA (cerebrovascular accident) Status: Suspected Brief History of Present Illness: This is a 87 y/o female with HTN DM and CKD, s/p pace maker placement who presented to ER after presyncope. She was in her kitchen today and felt dizzy, almost passed out, and called her . She was brought in ER. In ER, her BP was close to 200. She is doing fair now, but she did not remember her medications, she said she might miss her medications. She has no headache. She has no blurred vision. She has no weakness. Hospital Course: Clinically, patient has improved. We did orthostatics and she did not have any further symptoms. She did not have any arrhythmias while on telemetry. We did serial troponins and EKG with no significant changes. Patient does have pacemaker and she will need to follow with her plastics and composites inspector regarding further plan of care at this time. Clinically, she is stable. Outpatient follow with PCP and Cardiology in 1-2 weeks. Vital Signs/Physical Exam: Temp Pulse Resp BP Pulse Ox 97.2 F 67 18 127/60 95 04/12/18 16:00 04/12/18 16:00 04/12/18 16:00 04/12/18 16:00 04/12/18 16:00 General: Alert, In no apparent distress, Oriented x3 Cardiovascular: Regular rate/rhythm Laboratory Data at Discharge: WBC 8.8 K/uL (4.3-10.9) D 04/12/18 11:28 Hgb 11.9 g/dL (12.0-15.0) L 04/12/18 11:28 Hct 37.5 % (36.0-45.0) 04/12/18 11:28 Plt Count 235 K/uL (152-406) 04/12/18 11:28 PT 12.7 SECONDS (9.5-12.5) H 04/10/18 10:58 INR 1.08 04/10/18 10:58 Sodium 137 mEq/L (135-145) 04/12/18 11:28 Potassium 4.5 mEq/L (3.6-5.0) 04/12/18 11:28 BUN 35 mg/dL (6-20) H 04/12/18 11:28 Creatinine 1.46 mg/dL (0.44-1.00) H 04/12/18 11:28 Glucose 155 mg/dL (65-120) H 04/12/18 11:28 Phosphorus 3.4 mg/dL (2.5-4.3) 04/12/18 11:28 Magnesium 2.0 mg/dL (1.8-2.5) 04/12/18 11:28 Total Bilirubin 0.4 mg/dL (0.3-1.2) 04/10/18 10:58 AST 19 IU/L (10-42) 04/10/18 10:58 ALT 15 IU/L (10-60) 04/10/18 10:58 Alkaline Phosphatase 82 IU/L (42-121) 04/10/18 10:58 B-Natriuretic Peptide 161 pg/ml (<=100) H 04/10/18 10:58 Home Medications: Aspirin [Aspirin EC 81 MG] 81 mg PO DAILY #90 tablet. 05/28/17 Atorvastatin Calcium [Lipitor*] 10 mg PO BEDTIME #30 tab 05/28/17 Travoprost [Travatan Z] 2.5 ml EACH EYE DAILY 05/28/17 Allopurinol 300 mg PO DAILY 04/10/18 Colchicine/Probenecid [Probenecid-Colchicine Tabs] 1 tab PO DAILY 04/10/18 Glimepiride 2 mg PO DAILY 04/10/18 Metformin HCl [Glucophage*] 500 mg PO DAILY 04/10/18 Metoprolol Succinate [Toprol Xl] 25 mg PO DAILY 04/10/18 Amlodipine [Norvasc*] 10 mg PO DAILY #30 tab 04/12/18 New Medications: Amlodipine [Norvasc*] 10 mg PO DAILY #30 tab Patient Discharge Instructions: OK TO DC IV AND DC HOME. FOLLOW-UP WITH PRIMARY CARE PROVIDER IN 1-2 WEEKS. FOLLOW-UP WITH CARDIOLOGY IN 1-2 WEEKS. RETURN TO THE ER IF symptoms worsen. CALL or TEXT DR. MOONEY AT [phone] IF ANY QUESTIONS REGARDING HOSPITAL STAY. PLEASE CALL THE FLOOR AT [phone] IF ANY MEDICATION OR NURSING QUESTIONS. Diet: AHA Activity: Fall precautions Followup: Alban Sterling DO [ACTIVE - CAN ADMIT] - 1-2 Weeks (call the office on Friday and make an appointment in 1-2 weeks) Néstor Harmon MD [ACTIVE - CAN ADMIT] - 1-2 Weeks (call on Friday to schedule an appointmen tin 1-2 weeks. ) Time spent managing pt's care (in minutes): 30
== END 2018-04-12 16:59 | disposition home or self-care (01) ==
LOC: ER 10:10 → ERHOLD 13:38 → 4TH 16:03
PROVIDERS: ADMIT Internal Medicine Hematology & Oncology; ATTEND Internal Medicine Hematology & Oncology
DX: R42 Dizziness and giddiness (principal); I12.9 Hypertensive chronic kidney disease with stage 1 through stage 4 chronic kidney disease, or unspecified chronic kidney disease; E11.22 Type 2 diabetes mellitus with diabetic chronic kidney disease; N18.3 Chronic kidney disease, stage 3 (moderate); Z95.0 Presence of cardiac pacemaker; E78.5 Hyperlipidemia, unspecified; Z79.82 Long term (current) use of aspirin
CPT/HCPCS: 36415 ×2; 70450; 71045; 80048 ×2; 80076; 81003; 82962; 83036; 83735 ×2; 83880; 84100; 84484; 85025 ×2; 85610; 93005; 99284; G0378 ×2

== ENCOUNTER 2018-04-16 10:01 | Emergency (ER) | payer OTHER ==
[2018-04-16] MEDS ORDERED: Caclcium Chloride 10% INJ SYR IV ONE (10:02)
[2018-04-16] MEDS ORDERED: ETOMIDATE 20 MG/10 ML VIAL IV ONE (10:02)
[2018-04-16] MEDS ORDERED: DOBUTAMINE 250 MG/250 ML BAG IV ONE (10:02)
[2018-04-16] MEDS ORDERED: EPINEPHrine 1 MG/10 ML SYR IV ONE (10:02)
[2018-04-16] MEDS ORDERED: VECURONIUM 10 MG/VIAL IV ONE (10:02)
[2018-04-16 10:18] LABS: Arterial Blood Carboxyhemoglob 0.7 % (0-1.5); Blood Gas Oxyhemoglobin 88.3 % (94-97); Blood O2 Saturation 89.6 % (92-98.5)
[2018-04-16] MEDS ORDERED: HEPARIN/D5W 25,000 UNIT/500 ML BAG IV ONE (10:40)
[2018-04-16] MEDS ORDERED: RSI MEDICATION KIT IV ONE (10:53)
[2018-04-16] MEDS ORDERED: ROCURONIUM 50 MG/5 ML VIAL IV ONE (10:54)
[2018-04-16] MEDS ORDERED: MAGNESIUM SULFATE 1 gm IVPB 1 GM/100 ML BAG IV ONE (10:55)
[2018-04-16 11:06] LABS: Protime INR 1.03
[2018-04-16 11:09] LABS: Absolute Lymphocytes (CBC) 5.1 K/uL (0.7-4.9); Absolute Monocytes 0.7 K/uL (0.1-1.3); Absolute Neutrophil 6.1 K/uL (1.8-8.0); Basophils % 0.6 % (0-1.3); Eosinophils % 3.9 % (0-4.4); Hematocrit 39.1 % (36.0-45.0); MCH 28.7 pg (27.0-35.0); MCV 92.5 fL (80-100); MPV 9.1 fL (7.6-11.3); Monocytes % 5.3 % (3.3-12.3); RBC Red Blood Cell Count 4.22 M/uL (3.86-4.86)
[2018-04-16] MEDS ORDERED: DOPAMINE/D5W 400 MG/250 ML BAG IV ONE (11:12)
[2018-04-16 11:24] LABS: Urine Blood TRACE (NEG); Urine Glucose NEGATIVE (NEG); Urine Protein TRACE (NEG); Urine pH 5.5 (5.0-7.0)
[2018-04-16 11:27] LABS: Albumin 3.5 g/dL (3.2-5.5); Bilirubin Direct 0.2 mg/dL (0-0.2); Bilirubin Total 0.4 mg/dL (0.3-1.2); Protein, Total 6.8 g/dL (6.0-8.3)
[2018-04-16 11:29] LABS: Potassium 4.5 mEq/L (3.6-5.0)
--- NOTE | 2018-04-16 11:32 | EKG ---
Test Date: 2018-04-16 Test Time: 10:35:56 Recharger: JACOBY MEASUREMENT RESULTS: Intervals: Rate: 95 NC: 256 QRSD: 160 QT: 400 QTc: 502 [place]: P: NC: 256 QRS: -85 T: 88 INTERPRETIVE STATEMENTS: Atrial-sensed ventricular-paced rhythm with prolonged AV conduction Abnormal ECG Compared to ECG 04/16/2018 10:02:10 No significant changes Electronically Signed On 04-16-18 11:31:43 CDT by Néstor Harmon
--- NOTE | 2018-04-16 11:32 | EKG ---
Test Date: 2018-04-16 Test Time: 10:02:10 Commercial Plumber: SHAVONNE MEASUREMENT RESULTS: Intervals: Rate: 83 OR: 264 QRSD: 158 QT: 450 QTc: 528 [place]: P: OR: 264 QRS: -83 T: 89 INTERPRETIVE STATEMENTS: Atrial-sensed ventricular-paced rhythm with prolonged AV conduction Abnormal ECG Compared to ECG 04/10/2018 10:50:45 Atrial-paced complex(es) or rhythm no longer present Left anterior fascicular block no longer present Left ventricular hypertrophy no longer present T-wave abnormality no longer present Possible ischemia no longer present Electronically Signed On 04-16-18 11:31:58 CDT by Néstor Harmon
[2018-04-16] MEDS ORDERED: NOREPINEPHRINE 4mg/D5W 250mL 4 MG/250 ML BAG IV ONE (11:36)
[2018-04-16] MEDS ORDERED: NA CHLORIDE 0.9% 1,000 ML ONE (11:53)
[2018-04-16] MEDS ORDERED: ONDANSETRON 4 MG/2 ML VIAL ONE (13:04)
[2018-04-16] MEDS ORDERED: MORPHINE 4 MG/ML SYR ONE (13:04)
--- NOTE | 2018-04-16 13:06 | ER ---
Nurse's Notes [facility] Name: Elle Guy Age: 87 yrs Sex: Female : 1930 Arrival Date: 04/16/2018 Time: 10:03 Bed 4 Private MD: Diagnosis: Cardiac arrest;Cardiogenic shock Presentation: 04/16 10:07 Presenting complaint: EMS states: Sudden onset of chest pain and dyspnea, pt was jl7 diaphoretic upon arrival, 324 mg aspirin given. Pt denies chest pain in route. Transition of care: patient was not received from another setting of care. Onset of symptoms was April 16, 2018. Risk Assessment: Do you want to hurt yourself or someone else? Patient reports no desire to harm self or others. Initial Sepsis Screen: Does the patient meet any 2 criteria? No. Patient's initial sepsis screen is negative. Does the patient have a suspected source of infection? No. Patient's initial sepsis screen is negative. Care prior to arrival: Medication(s) given: ASA, 81 mg, x 4, IV initiated. 20 GA, in the right antecubital area, Glucose check: 271 Oxygen administered. via nasal cannula. 10:07 Method Of Arrival: EMS: [facility] jl7 10:07 Acuity: DAVID 2 jl7 11:04 Compressions began at 11:04. jl7 Triage Assessment: 10:15 General: Appears distressed, Behavior is cooperative. Pain: Denies pain. jl7 Cardiovascular: Patient's skin is warm and dry. Respiratory: Airway is patent Respiratory effort is even, labored, Respiratory pattern is symmetrical, tachypnea Breath sounds are clear bilaterally. Historical: - Allergies: 10:11 NKA; tw2 - Home Meds: 10:11 tumeric [Active]; omega xl [Active]; doxazosin 2 mg oral tab 1 tab twice a daily tw2 [Active]; potassium chloride 20 mEq Oral pack 1 packet 2 times per day [Active]; aspirin 81 mg Oral chew 1 tab once daily [Active]; furosemide 40 mg Oral tab 1 tab 2 times per day [Active]; carvedilol 25 mg oral tab 1 tab 2 times per day [Active]; glimepiride 2 mg Oral tab 1 tab once daily [Active]; Metformin Oral [Active]; Vitamin D Oral [Active]; - PMHx: 10:11 Arthritis; Hypertension; Diabetes - NIDDM; tw2 - PSHx: 10:11 left hand sx; tw2 - Immunization history:: Adult Immunizations unknown. - Social history:: Smoking status: Patient/guardian denies using tobacco. - Ebola Screening: : Patient denies travel to an Ebola-affected area in the 21 days before illness onset. Screenin:18 Abuse screen: Denies threats or abuse. Nutritional screening: No deficits noted. tw2 Tuberculosis screening: No symptoms or risk factors identified. Fall Risk None identified. Assessment: 10:30 General: General: Appears distressed, Behavior is cooperative. Neuro: Level of jl7 Consciousness is awake, alert, obeys commands, Oriented to person, place, time. Cardiovascular: Reports shortness of breath, Heart tones present Capillary refill is > 3 seconds in bilateral fingers toes Chest pain is denied. Respiratory: Airway is patent Respiratory effort is even, labored, with nasal flaring, Respiratory pattern is symmetrical, tachypnea Breath sounds are clear bilaterally. Derm: Skin is clammy, diaphoretic, Skin is pale, Skin temperature is cool. 10:48 Reassessment: Pt was sitting upright, on Bipap, verbally communicating. Pt's eyes jl7 became fixed and right arm contracted. Pt became unresponsive, began bagging pt; provider notified and at bedside for intubation. Respiratory: Airway is patent Respiratory effort is none. 10:53 Reassessment: Verbal order from Dr. Gamble to administer Mag 1 G IV bolus at 600 mg/hour jl7 to infuse 1 gram over 10 min. 11:04 CPR assessment: pupils fixed \T\ dilated, Ambu ventilation. jl7 11:05 Reassessment: Code 99 called while pt being transported back from CT, pt placed back in iw ER bed 4, RT bagging pt, CPR in progress, pt placed back on monitor, ACLS initiated. 11:08 Reassessment: regained central pulses, compressions held, BP=64/43. iw 11:15 Reassessment: BD Pérez setting up for central line placement, JW=974/67, HR=70, RT at iw bedside, pt placed on vent. 11:34 Cardiac rhythm is vent paced, no pulses palpated at this time, cpr began. tw2 11:34 CPR assessment: CPR at this time. tw2 11:38 Cardiac rhythm is palpable pulses at femoral and brachial. tw2 12:02 Reassessment: provider Dr. Gamble and Beto Cornejo at bedside with US verifying pulse, per tw2 provider start CPR at this time. 12:05 Cardiac rhythm is no palpable pulse, continue CPR at this time. tw2 12:06 CPR assessment: palpable pulse at femoral artery. tw2 12:18 Cardiac rhythm is no palpable pulse, CPR began at 1218. tw2 12:21 CPR assessment: pulse check, continue CPR. tw2 12:24 CPR assessment: no pulse, continued CPR. tw2 12:28 CPR assessment: pulse check, no palpable pulse, CPR continued. tw2 12:35 CPR assessment: no palpable pulse, US shows femoral pulse per Tali Chong PA. tw2 12:47 CPR assessment: no palpable pulse per DB Delaney. Cardiac rhythm is Time of . tw2 12:53 Cardiac rhythm is per Dr. Gamble with US no fem pulse or cardiac activity. tw2 13:25 Reassessment: body will not be sent to [place] office, per Judge Gardner, ETT and IV lines iw removed, pt prepped for family viewing. 13:59 Reassessment: family at bedside. iw 14:00 Reassessment: pt's shirt and home medications given to son Bryan Guy, no other iw belongings noted. Vital Signs: 10:07 BP 113 / 74; Pulse 70; Resp 42 S; Temp 97.4; Pulse Ox 90% on R/A; Weight 68.04 kg (R); jl7 10:12 Temp 97.4(O); tw2 10:15 Pulse Ox 96% on BiPAP; tw2 11:15 BP 104 / 41; Pulse 83; iw 11:15 BP 104 / 41; Pulse 70; Resp 40 A; Pulse Ox 98% on ETT vent; tw2 11:20 BP 69 / 19; Pulse 61; tw2 11:32 Temp 96.9(R); iw 11:45 BP 88 / 63; Pulse 86; Resp 20 A; Pulse Ox 100% on ETT vent; iw 10:15 14/7 rate 14 at 50% on BIPAP tw2 11:15 assist control at 20, tidal vol 550 at 50%, pt o2 at 98% tw2 11:20 provider at bedside performing central line, dopamine started at this time. tw2 ED Course: 10:03 Patient arrived in ED. bd 10:04 Beto Cesar PA is PHCP. jr8 10:04 Juan Gamble MD is Attending Physician. jr8 10:06 Teresa Smiley RN is Primary Nurse. jl7 10:07 Arm band placed on right wrist. jl7 10:07 Bed in low position. Call light in reach. phototypesetting equipment monitor on. Pulse ox on. NIBP on. tw2 10:10 Triage completed. jl7 10:10 Initial lab(s) drawn, by me, sent to lab. First set of blood cultures drawn by me. jb1 10:11 EKG done, by technical communicator. reviewed by Beto ACE. at1 10:22 X-ray completed. Portable x-ray completed in exam room. Patient tolerated procedure jb2 well. 10:22 Chest Single View XRAY In Process Unspecified. EDMS 10:25 Second set of blood cultures drawn by me. jb1 10:35 Moncada cath inserted, using sterile technique, 16 Fr., by me, balloon inflated, to tw2 gravity drainage. 10:40 Inserted saline lock: 22 gauge in left antecubital area, using aseptic technique. Blood jb1 collected. 10:40 EKG done, by ED staff, reviewed by Beto ACE. jb1 10:47 Urine collected: Moncada catheter specimen, clear, rikki colored. jb1 10:54 Intubation: Ventilated with 100% bag valve mask (BVM) prior to procedure. 7.5 Fr. ETT tw2 placed orally. Performed by Beto ACE Successful on first attempt. Placement verified by CO2 detector w/ + color change, auscultating bilateral breath sounds, Ventilated with Ambu bag. 23 at teeth. 11:35 Radiology exam delayed due to to call when ready. pt unstable. jj2 12:00 EKG done, by technical communicator. reviewed by Beto ACE. sm3 12:16 NGT: inserted 12 Fr. via right nare. other per DEANNE Moore verified placement of air over tw2 stomach. 12:57 [address] [facility] to have the casket coverer counter control operator to come to er. bd 13:05 Beto Cesar PA is Pronouncing Provider. jr8 Administered Medications: Discontinued: Heparin (OK Drip) 12 units/kg/hr - (HEParin 51255 units, D5W 500 ml) IV at calculated rate Per protocol; Max initial rate 1000 units/hr Discontinued: Levophed (4 mg/250 mL D5W 4 mcg/min IV at calculated rate Per protocol; (final concentration is 16 microgram/mL) 10:52 Drug: Etomidate 10 mg Route: IVP; Site: left antecubital; jl7 11:29 Follow up: Response: No adverse reaction jl7 10:53 Drug: VecuroNIUM 10 mg Route: IVP; Site: left antecubital; jl7 11:30 Follow up: Response: No adverse reaction jl7 11:05 Drug: EPINEPHrine 0.1mg/mL 1:10,000 1 mg Route: IVP; Site: left antecubital; iw 11:07 Drug: Sodium Bicarbonate 1 amp Route: IVP; Site: left antecubital; iw 11:08 Drug: EPINEPHrine 0.1mg/mL 1:10,000 1 mg Route: IVP; Site: right antecubital; iw 11:09 Drug: Sodium Bicarbonate 1 amp Route: IVP; Site: right antecubital; iw 11:25 Drug: Dopamine drip 10 mcg/kg/min - (DOPamine 400 mg, D5W 250 ml) Route: IV; Rate: tw2 calculated rate; Site: right antecubital; 11:32 Follow up: Rate change 20 mcg/kg/min tw2 11:35 Drug: EPINEPHrine 0.1mg/mL 1:10,000 1 mg {Note: central line.} Route: IVP; Site: Other; tw2 11:38 Follow up: palpable femoral pulse at this time. tw2 11:46 Drug: Levophed (4 mg/250 mL D5W 5 mcg/min Route: IV; Rate: calculated rate; Site: Other;tw2 11:50 Follow up: Rate change 10 mg/min tw2 12:11 Follow up: Rate change 20 mg/min; on Levophed at this time per Clemente Pérez PA tw2 12:00 Drug: NS 0.9% 500 ml {Note: central line.} Route: IV; Rate: bolus; Site: Other; tw2 12:03 Drug: EPINEPHrine 0.1mg/mL 1:10,000 1 mg {Note: per central line .} Route: IVP; Site: tw2 Other; 12:14 Drug: DOBUTamine (250 mg/250mL premix) 10 mcg/kg/min {Note: central line .} Route: IV; tw2 Rate: calculated rate; Site: Other; 12:16 Drug: Heparin (OK-Bolus with thrombolytic) - HEParin 60 units/kg {Co-Signature: iw tw2 (Marilyn Avelar RN).} Route: IVP; Site: right antecubital; 12:18 Drug: Heparin (OK Drip) 12 units/kg/hr - (HEParin 41138 units, D5W 500 ml) tw2 {Co-Signature: iw (Marilyn Avelar RN).} Route: IV; Rate: calculated rate; Site: right antecubital; 13:12 Follow up: discontinued at 1238 tw2 12:18 Drug: EPINEPHrine 0.1mg/mL 1:10,000 1 mg Route: IVP; Site: Other; tw2 12:22 Drug: EPINEPHrine 0.1mg/mL 1:10,000 0.01 mg/kg Route: IVP; Site: Other; tw2 12:25 Drug: EPINEPHrine 0.1mg/mL 1:10,000 0.01 mg/kg Route: IVP; Site: Other; tw2 12:26 Drug: Calcium Chloride 10% 10 ml Route: IVP; Site: Other; tw2 12:29 Drug: EPINEPHrine 0.1mg/mL 1:10,000 1 mg Route: IVP; Site: Other; tw2 Point of Care Testing: Blood Glucose: 10:12 Blood Glucose: 272 mg/dL; tw2 10:12 per Joselito Perry tw2 Ranges: Intake: Outcome: 12:54 Outcome Patient tw2 12:54 Patient : Time of 12:54 Pronounced by Juan Gamble MD tw2 12:54 Condition: 16:02 Patient left the ED. jl7 Signatures: Dispatcher [employer] EDJorge Cervantes jb1 Iona Medellin Jesse jb2 Nando Adhikari Irene, RN RN iw Beto Cesar PA PA jr8 Maria M jose, health care recruiter EKG Tat1 Michelle Pinto RN RN tw2 Teresa Smiley RN RN jl7 Maral Harmon 3 Marilyn Avelar RN Corrections: (The following items were deleted from the chart) 11:22 10:50 Reassessment: pt unresponsive and not breathing, Dr. Gamble and DB Pérez called to iw bedside, CODE 99 called iw 11:24 10:54 Intubation: Ventilated with 100% bag valve mask (BVM) prior to procedure. 7.5 Fr. tw2 ETT placed orally. Performed by Beto ACE Successful on first attempt. Placement verified by CO2 detector w/ + color change, auscultating bilateral breath sounds, Ventilated with Ambu bag. tw2 11: 10:10 Pulse Ox 96% BiPAP; 14/7 rate 14 at 50% on BIPAP; tw2 tw2 : 10:34 General: Appears distressed, Behavior is cooperative, [place] [id number] 10:34 Pain: Denies pain. [place] [id number] 10:34 Neuro: Level of Consciousness is awake, alert, obeys commands, Oriented to [facility] person, place, time, [facility] 10:34 Cardiovascular: Heart tones S1 S2 present Patient's skin is warm and dry. 7 10:34 Respiratory: Airway is patent Respiratory effort is even, labored, [place] [id number] 10:34 GI: No signs and/or symptoms were reported involving the gastrointestinal system. [place] [id number] 10:34 : No signs and/or symptoms were reported regarding the genitourinary system. [facility] 10:34 Derm: Skin is dry, Skin is normal, Skin temperature is cool [place] [id number] 10:34 EENT: No signs and/or symptoms were reported regarding the EENT system. 7 [facility] 10:34 Musculoskeletal: No signs and/or symptoms reported regarding the musculoskeletal [facility] system. jl7 11:30 Compressions began at 11:04. [facility] 11:32 Temp 96.9F Rectal; iw iw
--- NOTE | 2018-04-16 13:06 | EDPHYS ---
Physician Documentation [facility] Name: Elle Guy Age: 87 yrs Sex: Female : 1930 Arrival Date: 04/16/2018 Time: 10:03 Bed 4 Private MD: ED Physician Juan Gamble HPI: 04/16 12:57 This 87 yrs old Black Female presents to ER via EMS with complaints of Shortness Of jr8 Breath. 12:57 The patient has shortness of breath at rest. Onset: The symptoms/episode began/occurred jr8 acutely, today. Duration: The symptoms are continuous. The patient's shortness of breath is aggravated by walking. Associated signs and symptoms: The patient has no apparent associated signs or symptoms. Severity of symptoms: At their worst the symptoms were severe. It is unknown whether or not the patient has had similar symptoms in the past. The patient has not recently seen a physician. Historical: - Allergies: 10:11 NKA; tw2 - Home Meds: 10:11 tumeric [Active]; omega xl [Active]; doxazosin 2 mg oral tab 1 tab twice a daily tw2 [Active]; potassium chloride 20 mEq Oral pack 1 packet 2 times per day [Active]; aspirin 81 mg Oral chew 1 tab once daily [Active]; furosemide 40 mg Oral tab 1 tab 2 times per day [Active]; carvedilol 25 mg oral tab 1 tab 2 times per day [Active]; glimepiride 2 mg Oral tab 1 tab once daily [Active]; Metformin Oral [Active]; Vitamin D Oral [Active]; - PMHx: 10:11 Arthritis; Hypertension; Diabetes - NIDDM; tw2 - PSHx: 10:11 left hand sx; tw2 - Immunization history:: Adult Immunizations unknown. - Social history:: Smoking status: Patient/guardian denies using tobacco. - Ebola Screening: : Patient denies travel to an Ebola-affected area in the 21 days before illness onset. ROS: 12:57 Eyes: Negative for injury, pain, redness, and discharge, ENT: Negative for injury, jr8 pain, and discharge, Neck: Negative for injury, pain, and swelling, Cardiovascular: Negative for chest pain, palpitations, and edema, Abdomen/GI: Negative for abdominal pain, nausea, vomiting, diarrhea, and constipation, Back: Negative for injury and pain, MS/Extremity: Negative for injury and deformity, Skin: Negative for injury, rash, and discoloration, Neuro: Negative for headache, weakness, numbness, tingling, and seizure. 12:57 Respiratory: Positive for dyspnea on exertion, shortness of breath. Exam: 12:57 Eyes: Pupils equal round and reactive to light, extra-ocular motions intact. Lids and jr8 lashes normal. Conjunctiva and sclera are non-icteric and not injected. Cornea within normal limits. Periorbital areas with no swelling, redness, or edema. ENT: Nares patent. No nasal discharge, no septal abnormalities noted. Tympanic membranes are normal and external auditory canals are clear. Oropharynx with no redness, swelling, or masses, exudates, or evidence of obstruction, uvula midline. Mucous membranes moist. Neck: Trachea midline, no thyromegaly or masses palpated, and no cervical lymphadenopathy. Supple, full range of motion without nuchal rigidity, or vertebral point tenderness. No Meningismus. Abdomen/GI: Soft, non-tender, with normal bowel sounds. No distension or tympany. No guarding or rebound. No evidence of tenderness throughout. Back: No spinal tenderness. No costovertebral tenderness. Full range of motion. MS/ Extremity: Pulses equal, no cyanosis. Neurovascular intact. Full, normal range of motion. Neuro: Awake and alert, GCS 15, oriented to person, place, time, and situation. Cranial nerves II-XII grossly intact. Motor strength 5/5 in all extremities. Sensory grossly intact. Cerebellar exam normal. Normal gait. 12:57 Cardiovascular: Rate: normal, Rhythm: regular, Pulses: Pulses are 2+ in right radial artery and left radial artery. Heart sounds: normal, normal S1and S2, no S3 or S4, no murmur, no rub, no gallop, Edema: is not appreciated. 12:57 Respiratory: severe repiratory distress is noted, Respirations: labored breathing, tachypnea, Breath sounds: are clear throughout, Respiratory rate: 40 Vital Signs: 10:07 BP 113 / 74; Pulse 70; Resp 42 S; Temp 97.4; Pulse Ox 90% on R/A; Weight 68.04 kg (R); jl7 10:12 Temp 97.4(O); tw2 10:15 Pulse Ox 96% on BiPAP; tw2 11:15 BP 104 / 41; Pulse 83; iw 11:15 BP 104 / 41; Pulse 70; Resp 40 A; Pulse Ox 98% on ETT vent; tw2 11:20 BP 69 / 19; Pulse 61; tw2 11:32 Temp 96.9(R); iw 11:45 BP 88 / 63; Pulse 86; Resp 20 A; Pulse Ox 100% on ETT vent; iw 10:15 14/7 rate 14 at 50% on BIPAP tw2 11:15 assist control at 20, tidal vol 550 at 50%, pt o2 at 98% tw2 11:20 provider at bedside performing central line, dopamine started at this time. tw2 Procedures: 12:56 Intubation: Intubated orally using # 4 Tip blade with 7.0 mm ETT. was successful jr8 on first attempt. Ventilated with Ambu bag. ventilator. Cricoid pressure applied during procedure. Tube secured with ETT dowling measured 23 cm at teeth. Placement verified by CXR, CO2 detector with (+) color change, auscultating bilateral breath sounds, O2 saturation after procedure was 100 %. Patient tolerated well. Central Line: the site was prepped with Betadine, in sterile fashion, a triple lumen catheter was inserted, in the right femoral vein, in 1 attempts. placement was verified, by blood return, the site was dressed with 4X4s, Tegaderm, foam tape, using sterile technique, the patient tolerated the procedure, well. MDM: 10:04 Patient medically screened. jr8 10:47 ED course: Bedside ECHO shows plethoric IVC, pulmonary edema, and global hypokinesis of interventional radiology rn. . 10:58 ED course: Pt with change in mental status while on bipap, became unresponsive with rn deviation to left, ct head/chest/abd/pelvis ordered. Given rapid symptoms, change in ECG, most likely acute SC with hyperacute twaves, paging dr harmon. Never lost a pulse. Intubated for respiratory failure. . 11:05 ED course: Consulted with Dr. Harmon, notified of hyperacute twaves and concern for journeyman pressman SC, he recommends admission to ICU and plans to cath if becomes more stable. . 12:06 ED course: Consulted with [facility], they accepted patient for emergent transfer for rn cath /cardiac ICU, patient lost pulse, started CPR, has intermittent rhythms but not perfusing based on bedside u/s. Hypotensive, maxed out of dopamine, started levophed. . 12:38 ED course: Patient has arrested multiple times in ED. We just gained pulse again. We jr8 are cancelling [facility] as patient is too unstable to transfer. Dr. Gamble just talked with family again. Family unsure what they want to do. Decision is left in our hands per family. Dr. Gamble and I agree that if patient codes again that we will not pursue CPR any longer. Patient has been down too long. Prognosis poor . 12:55 ED course: Patient arrested again. No pulse. Verified with ultrasonography. Patient jr8 time of 12:54pm . 12:57 Differential diagnosis: CHF exacerbation, Chronic Obstructive Pulmonary Disease jr8 Myocardial Infarction pneumonia, pulmonary edema, Pulmonary Embolism aortic dissection. Data reviewed: vital signs, nurses notes, lab test result(s), EKG, radiologic studies, plain films. Data interpreted: Pulse oximetry: on ventilator is 100 %. Interpretation: normal. 04/16 10:08 Order name: Basic Metabolic Panel; Complete Time: 11:04/16 10:08 Order name: Blood Culture Adult (2) 04/16 10:08 Order name: BNP; Complete Time: 13: 04/16 10:08 Order name: CBC with Diff; Complete Time: 11: 04/16 10:08 Order name: Lactate; Complete Time: 11: 04/16 10:08 Order name: LFT's; Complete Time: 11: 04/16 10:08 Order name: Lipase; Complete Time: 11:56 04/16 10:08 Order name: Procalcitonin; Complete Time: 13:05 [facility] 04/16 10:08 Order name: Protime (+inr); Complete Time: 11:56 04/16 10:08 Order name: Ptt, Activated; Complete Time: 11:56 04/16 10:08 Order name: Troponin (emerg Dept Use Only); Complete Time: 11:56 04/16 10:08 Order name: ABG; Complete Time: 10:40 04/16 11:00 Order name: Urine Dipstick--Ancillary (enter results); Complete Time: 11:56 04/16 10:08 Order name: Chest Single View XRAY; Complete Time: 15:51 [facility] 04/16 10:08 Order name: BIPAP [facility] 04/16 10:08 Order name: Accucheck; Complete Time: : 04/16 10:08 Order name: Cardiac monitoring; Complete Time: 10: [facility] 04/16 10:08 Order name: EKG - Nurse/Tech; Complete Time: 04/16 10:08 Order name: IV Saline Lock - Large Bore; Complete Time: 10: 04/16 10:08 Order name: Labs collected and sent; Complete Time: : [facility] 04/16 10:08 Order name: O2 Per Protocol; Complete Time: 04/16 10:08 Order name: O2 Sat Monitoring; Complete Time: : [facility] 04/16 10:08 Order name: Urine Dipstick-Ancillary (obtain specimen); Complete Time: 10: [facility] 04/16 10:08 Order name: [place]; Complete Time: 10: [facility] 04/16 10:32 Order name: EKG Electrocardiogram EDMS 04/16 11:01 Order name: EKG Electrocardiogram EDMS Administered Medications: Discontinued: Heparin (SC Drip) 12 units/kg/hr - (HEParin 88477 units, D5W 500 ml) IV at calculated rate Per protocol; Max initial rate 1000 units/hr Discontinued: Levophed (4 mg/250 mL D5W 4 mcg/min IV at calculated rate Per protocol; (final concentration is 16 microgram/mL) 10:52 Drug: Etomidate 10 mg Route: IVP; Site: left antecubital; jl7 11:29 Follow up: Response: No adverse reaction jl7 10:53 Drug: VecuroNIUM 10 mg Route: IVP; Site: left antecubital; jl7 11:30 Follow up: Response: No adverse reaction jl7 11:05 Drug: EPINEPHrine 0.1mg/mL 1:10,000 1 mg Route: IVP; Site: left antecubital; iw 11:07 Drug: Sodium Bicarbonate 1 amp Route: IVP; Site: left antecubital; iw 11:08 Drug: EPINEPHrine 0.1mg/mL 1:10,000 1 mg Route: IVP; Site: right antecubital; iw 11:09 Drug: Sodium Bicarbonate 1 amp Route: IVP; Site: right antecubital; iw 11:25 Drug: Dopamine drip 10 mcg/kg/min - (DOPamine 400 mg, D5W 250 ml) Route: IV; Rate: tw2 calculated rate; Site: right antecubital; 11:32 Follow up: Rate change 20 mcg/kg/min tw2 11:35 Drug: EPINEPHrine 0.1mg/mL 1:10,000 1 mg {Note: central line.} Route: IVP; Site: Other; tw2 11:38 Follow up: palpable femoral pulse at this time. tw2 11:46 Drug: Levophed (4 mg/250 mL D5W 5 mcg/min Route: IV; Rate: calculated rate; Site: Other;tw2 11:50 Follow up: Rate change 10 mg/min tw2 12:11 Follow up: Rate change 20 mg/min; on Levophed at this time per Clemente Pérez PA tw2 12:00 Drug: NS 0.9% 500 ml {Note: central line.} Route: IV; Rate: bolus; Site: Other; tw2 12:03 Drug: EPINEPHrine 0.1mg/mL 1:10,000 1 mg {Note: per central line .} Route: IVP; Site: tw2 Other; 12:14 Drug: DOBUTamine (250 mg/250mL premix) 10 mcg/kg/min {Note: central line .} Route: IV; tw2 Rate: calculated rate; Site: Other; 12:16 Drug: Heparin (SC-Bolus with thrombolytic) - HEParin 60 units/kg {Co-Signature: iw tw2 (Marilyn Avelar RN).} Route: IVP; Site: right antecubital; 12:18 Drug: Heparin (SC Drip) 12 units/kg/hr - (HEParin 18800 units, D5W 500 ml) tw2 {Co-Signature: iw (Marilyn Avelar RN).} Route: IV; Rate: calculated rate; Site: right antecubital; 13:12 Follow up: discontinued at 1238 tw2 12:18 Drug: EPINEPHrine 0.1mg/mL 1:10,000 1 mg Route: IVP; Site: Other; tw2 12:22 Drug: EPINEPHrine 0.1mg/mL 1:10,000 0.01 mg/kg Route: IVP; Site: Other; tw2 12:25 Drug: EPINEPHrine 0.1mg/mL 1:10,000 0.01 mg/kg Route: IVP; Site: Other; tw2 12:26 Drug: Calcium Chloride 10% 10 ml Route: IVP; Site: Other; tw2 12:29 Drug: EPINEPHrine 0.1mg/mL 1:10,000 1 mg Route: IVP; Site: Other; tw2 Point of Care Testing: Blood Glucose: 10:12 Blood Glucose: 272 mg/dL; tw2 10:12 per Joselito Perry tw2 Ranges: Critical Glucose Levels:Adult <50 mg/dl or >400 mg/dl <40 mg/dl or >180 mg/dl Disposition: 12:57 Critical Care:. . jr8 17:10 Co-signature as Attending Physician, Juan Gamble MD. rn Disposition: Patient pronounced on 04/16/18 12:54 by Beto Cesar. Impression: Cardiac arrest, Cardiogenic shock. - Released to Home. Critical care time excluding procedures: 12:57 Critical care time: Bedside Care: 20 minutes, Consultation: 15 minutes, Family jr8 Intervention: 20 minutes, Lab and imaging review: 15 minutes. Total time: 70 minutes Signatures: Dispatcher [employer] Marilyn Brenner RN RN iw Nieto, Roman, MD MD rn Beto Cesar, DB ACE jr8 Michelle Pinto RN RN tw2 Teresa Smiley RN RN jl7 Marilyn Avelar RN iw Corrections: (The following items were deleted from the chart) 11:01 10:47 Chest Abdomen Pelvis Wo Con+CT.RAD.BRZ ordered. EDMS EDMS 11:01 10:58 Head Brain Wo Cont+CT.RAD.BRZ ordered. EDMS EDMS 13:04 10:21 SALICYLATE+C.LAB.BRZ ordered. EDMS EDMS 13:25 11:02 Head C Spine Cap Wo Con ordered. EDMS EDMS 16:02 13:05 04/16/2018 13:05 Patient pronounced on 04/16/2018 at 12:54 by Beto Cesar. jl7 Impression: Cardiac arrest; Cardiogenic shock. Released to Home. jr8
--- NOTE | 2018-04-16 15:26 | RAD REPORT ---
EXAM DESCRIPTION: Jose Antonio Single View04/16/2018 10:24 am CLINICAL HISTORY: Chest pain COMPARISON: April 2018 FINDINGS: The lungs appear clear of acute infiltrate. The heart is mildly enlarged. Pacemaker leads are in place. IMPRESSION: No acute abnormalities displayed
[2018-04-16 16:12] VITALS: TEMP 96.9
[2018-04-16 16:13] VITALS: BP 88/63; O2SAT 100
--- NOTE | 2018-04-17 06:21 | EKG ---
Test Date: 2018-04-16 Test Time: 11:44:29 Director Hospice Operations: ROSSANA MEASUREMENT RESULTS: Intervals: Rate: 86 NH: 272 QRSD: 158 QT: 430 QTc: 514 [place]: P: NH: 272 QRS: -77 T: 94 INTERPRETIVE STATEMENTS: Atrial-sensed ventricular-paced rhythm with prolonged AV conduction Abnormal ECG Compared to ECG 04/16/2018 11:12:19 Ventricular premature complex(es) no longer present Electronically Signed On 04-17-18 06:20:52 CDT by Lalit Garcia
--- NOTE | 2018-04-17 06:22 | EKG ---
Test Date: 2018-04-16 Test Time: 11:12:19 Shallot Packer: ROSSANA MEASUREMENT RESULTS: Intervals: Rate: 77 ID: QRSD: [id number] QT: 462 QTc: 522 [place]: P: ID: QRS: -75 T: 95 INTERPRETIVE STATEMENTS: Atrial-sensed ventricular-paced rhythm Abnormal ECG Compared to ECG 04/16/2018 10:35:56 no significant change from previous ECG Electronically Signed On 04-17-18 06:22:20 CDT by Lalit Garcia
== END 2018-04-16 16:02 | disposition expired ==
LOC: ER 10:01
PROC: 0BH17EZ Insertion of Endotracheal Airway into Trachea, Via Natural or Artificial Opening (ICD-10-PCS; principal; 2018-04-16)
PROC: 5A1935Z Respiratory Ventilation, Less than 24 Consecutive Hours (ICD-10-PCS; 2018-04-16)
PROC: 06HM33Z Insertion of Infusion Device into Right Femoral Vein, Percutaneous Approach (ICD-10-PCS; 2018-04-16)
DX: R57.0 Cardiogenic shock (principal); I46.9 Cardiac arrest, cause unspecified; I10 Essential (primary) hypertension; E11.9 Type 2 diabetes mellitus without complications; Z79.82 Long term (current) use of aspirin
CPT/HCPCS: 31500; 36415; 36556; 51702; 71045; 80048; 80076; 81003; 82805; 82962; 83605; 83690; 83880; 84145; 84484; 85025; 85610; 85730; 87040 ×2; 92950; 93005 ×4; 94002; 94660; 99291; 99292; J0171 ×2; J1250; J1265; J2405; J3475; J7030; J7060